=== PATIENT | male | born 2000 | race Asian ===

== ENCOUNTER 2025-05-17 17:42 | Emergency (ER) | payer BC, SELFPAY ==
[~2025-05-17 17:42] MED LIST: Iopamidol-370 76% 500 ML MDV (1 ML CHARGE) ONE
[2025-05-17 18:52] LABS: Bacteria/HPF None Seen HPF (None Seen); CAUTI Indications for Culture Pelvic or flank pain; Glucose, Urine (Dipstick) Normal (Negative); Leukocyte Negative Leu/uL (Negative); Protein, Urine (Dipstick) Negative (Neg-Trace); RBC/HPF 0-3 HPF (0-3); Specific Gravity, Urine 1.016 (1.002-1.036); WBC/HPF 0-3 HPF (0-3)
[2025-05-17 18:58] LABS: Urine Culture Reflex No No
[2025-05-17] MEDS ORDERED: diphenhydrAMINE 50 MG/ML VIAL ONE (19:58)
[2025-05-17] MEDS ORDERED: Ketorolac Tromethamine 30 MG (1 mL) VIAL ONE (19:58)
[2025-05-17] MEDS ORDERED: Metoclopramide HCl 10 MG (2 mL) VIAL ONE (19:58)
[2025-05-17 20:20] LABS: #Basophils 0.03 10x3/uL (0.0-0.2); #Eosinophils 0.18 10x3/uL (0.0-0.7); #Monocytes 0.97 10x3/uL (0.11-0.59); #Neutrophils 4.28 10x3/uL (1.40-6.50); %Basophils 0.4 % (0.0-1.0); %Eosinophils 2.4 % (0.0-10.0); %Lymphocytes 26.2 % (21.0-51.0); %Monocytes 13.1 % (0.0-10.0); %Neutrophils 57.6 % (42.0-75.0); Hematocrit 45.8 % (42.0-52.0); Hemoglobin 15.0 g/dL (14.0-18.0); Mean Corpuscular Hemoglobin 28.4 pg (27.0-31.0); Mean Corpuscular Volume 86.6 fL (78.0-98.0); Platelet Count 315 10x3/uL (130-400); Red Blood Cell (RBC) Count 5.29 mill/uL (4.70-6.10); White Blood Cell (WBC) Count 7.43 10x3/uL (4.8-10.8)
[2025-05-17] MEDS ORDERED: Ondansetron PF 4 MG/2 ML Vial ONE (20:51)
[2025-05-17] MEDS ORDERED: cefTRIAXone (ROCEPHIN) 2 GM VIAL ONE (22:57)
[2025-05-18] MEDS ORDERED: Dexamethasone 10 MG/ML VIAL ONE (01:10)
[2025-05-18] MEDS ORDERED: Azithromycin 500 MG VIAL ONE (01:12)
[2025-05-18 07:42] LABS: Albumin 4.6 g/dL (3.1-4.5); Chloride 99 mmol/L (98-107); Potassium 3.8 mmol/L (3.5-5.1); Sodium 134 mmol/L (136-145)
[2025-05-18 07:43] LABS: ALT (SGPT) 28 U/L (Less than 45); AST (SGOT) 35 U/L (11-34); Alkaline Phosphatase 93 U/L (40-110); Anion Gap 15 mmol/L (10-20); BUN (Urea Nitrogen) 8 mg/dL (8.9-20.6); Bilirubin, Total 0.6 mg/dL (0.3-1.2); Calc. Creatinine Clearance 0 mL/min (70-130); Calcium 9.6 mg/dL (7.8-10.44); Carbon Dioxide 24 mmol/L (22-29); Globulin 4.2 g/dL (2.4-3.5); Glucose 89 mg/dL (70-105)
[2025-05-18 11:08] LABS: CK (CPK) 117 U/L (30-200); Lipase 26 U/L (8-78); Magnesium 2.1 mg/dL (1.6-2.6)
== END 2025-05-18 04:00 | disposition home or self-care (01) ==
LOC: ERS 17:42
DX: J18.9 Pneumonia, unspecified organism (principal)
CPT/HCPCS: 71045; 74177; 80053; 81001; 82550; 83605; 83690; 83735; 85025; 87081; 87428; 87430; 96365; 96367; 96375; 96376; J0456; J0696; J1100; J1200; J1885; J2405; J2765; J3010; Q9967